=== PATIENT | female | born 1980 | race Two or more races ===

== ENCOUNTER 2019-08-31 20:38 | Emergency (ER) | payer OTHER ==
[2019-08-31 20:53] VITALS: BP 142/91; PULSE 77; TEMP 98.2; BMI 23.8
[2019-08-31] MEDS ORDERED: SODIUM CHLORIDE 0.9% 500 ML INFUS.BAG IV ONE (22:14)
[2019-08-31] MEDS ORDERED: METOCLOPRAMIDE HCL INJECTION 10 MG/2 ML VIAL IVPB ONE (22:14)
--- NOTE | 2019-08-31 22:14 | PDOC ---
History of Present Illness - General Chief Complaint: Headache Stated Complaint: HEADACHES Time Seen by Provider: 08/31/19 22:00 History Source: Patient - History of Present Illness Initial Comments: 08/31/19 22:12 39 year old female c/o sinus pain and frontal headache, dizziness , vomited 1 x since this morning. patient reports having flu like symptoms 2 weeks ago. denies fever/ chills., neck pain, chest pain, Past History - Past Medical History Allergies/Adverse Reactions: Allergies Allergy/AdvReac Type Severity Reaction Status Date / Time No Known Allergies Allergy Verified 08/31/19 20:53 Home Medications: Ambulatory Orders Cefdinir [Omnicef -] 300 mg PO BID #20 capsule 08/31/19 Ibuprofen 400 mg PO QID PRN #20 tablet 08/31/19 COPD: No - Psycho Social/Smoking Cessation Hx Smoking History: Never smoked Have you smoked in the past 12 months: No Information on smoking cessation initiated: No Hx Alcohol Use: No Drug/Substance Use Hx: No Review of Systems - Review of Systems Able to Perform ROS?: Yes Is the patient limited [place] proficient: No Constitutional: No: Symptoms Reported, See HPI, Chills, Diaphoresis, Fever, Loss of Appetite, Malaise, Night Sweats, Weakness, Weight Stable, Unintentional Wgt. Loss, Unexplained wgt Loss, Other ABD/GI: Yes: Nausea, Vomiting Musculoskeletal: No: Symptoms Reported, See HPI, Back Pain, Gout, Joint Pain, Joint Swelling, Muscle Pain, Muscle Weakness, Neck Pain, Joint Stiffness, Other Neurological: Yes: Headache, Dizziness *Physical Exam - Vital Signs Last Vital Signs Temp Pulse Resp BP Pulse Ox 98.2 F 77 17 142/91 100 08/31/19 20:51 08/31/19 20:51 08/31/19 20:51 08/31/19 20:51 08/31/19 20:51 - Physical Exam General Appearance: Yes: Appropriately Dressed HEENT: positive: Nasal Congestion, Sinus Tenderness (maxillary sinus tenderness) Respiratory/Chest: positive: Lungs Clear, Normal Breath Sounds Cardiovascular: positive: Regular Rhythm, Regular Rate ED Treatment Course - LABORATORY CBC & Chemistry Diagram: 08/31/19 22:25 08/31/19 22:25 ED Progress Note - Progress Note Progress Note: 08/31/19 23:05 A: sinusitis; headache P: labs IVF reglan benadryl Medical Decision Making - Medical Decision Making 08/31/19 23:26 no headache now. will d/c home Discharge - Discharge Information Problems reviewed: Yes Clinical Impression/Diagnosis: Headache Qualifiers: Headache type: unspecified Headache chronicity pattern: acute headache Intractability: not intractable Qualified Code(s): R51 - Headache Sinusitis Qualifiers: Sinusitis location: maxillary Chronicity: acute Recurrence: not specified as recurrent Qualified Code(s): J01.00 - Acute maxillary sinusitis, unspecified - Additional Discharge Information Prescriptions: Cefdinir [Omnicef -] 300 mg PO BID #20 capsule Ibuprofen 400 mg PO QID PRN #20 tablet PRN Reason: Pain - Follow up/Referral Referrals: ON STAFF,NOT [Primary Care Provider] - - Patient Discharge Instructions Patient Printed Discharge Instructions: DI for Sinus Headache Additional Instructions: take ibuprofen every 6 hours as needed for pain take cefidnir as prescribed. follow up with your doctor as soon as possible. - Post Discharge Activity Work/Back to School Note: Back to Work
--- NOTE | 2019-08-31 22:18 | PDOC ---
*Physical Exam - Vital Signs Last Vital Signs Temp Pulse Resp BP Pulse Ox 98.2 F 77 17 142/91 100 08/31/19 20:51 08/31/19 20:51 08/31/19 20:51 08/31/19 20:51 08/31/19 20:51 ED Treatment Course - LABORATORY CBC & Chemistry Diagram: 08/31/19 22:25 08/31/19 22:25 Medical Decision Making - Medical Decision Making 08/31/19 22:18 Patient seen by the advanced practice provider under my direct supervision. Ancillary testing reviewed as necessary. I agree with plan as outlined by the advanced practice provider. Discharge - Discharge Information Problems reviewed: Yes Clinical Impression/Diagnosis: Headache Qualifiers: Headache type: unspecified Headache chronicity pattern: acute headache Intractability: not intractable Qualified Code(s): R51 - Headache Sinusitis Qualifiers: Sinusitis location: maxillary Chronicity: acute Recurrence: not specified as recurrent Qualified Code(s): J01.00 - Acute maxillary sinusitis, unspecified - Additional Discharge Information Prescriptions: Cefdinir [Omnicef -] 300 mg PO BID #20 capsule Ibuprofen 400 mg PO QID PRN #20 tablet PRN Reason: Pain - Follow up/Referral Referrals: ON STAFF,NOT [Primary Care Provider] - - Patient Discharge Instructions Patient Printed Discharge Instructions: DI for Sinus Headache Additional Instructions: take ibuprofen every 6 hours as needed for pain take cefidnir as prescribed. follow up with your doctor as soon as possible. - Post Discharge Activity Work/Back to School Note: Back to Work
[2019-08-31] MEDS ORDERED: METOCLOPRAMIDE HCL INJECTION 10 MG/2 ML VIAL ONE (22:30)
[2019-08-31 22:47] LABS: BASO % 0.1 % (0-2.0); EOS % 0.1 % (0-4.5); HEMATOCRIT 38.8 % (32.4-45.2); HEMOGLOBIN 12.8 GM/dL (10.7-15.3); LYMPH % 11.1 % (8-40); MCH 29.7 pg (25.7-33.7); MCHC 33.1 g/dl (32.0-36.0); MEAN CELL VOLUME 89.6 fl (80-96); MONO % 2.1 % (3.8-10.2); NEUT % 86.6 % (42.8-82.8); PLATELET COUNT 254 K/MM3 (134-434); RBC 4.32 M/mm3 (3.60-5.2); RDW 13.3 % (11.6-15.6); WHITE BLOOD COUNT 12.6 K/mm3 (4.0-10.0)
[2019-08-31 23:15] LABS: ALBUMIN 4.1 g/dl (3.4-5.0); BILIRUBIN,TOTAL 0.5 mg/dL (0.2-1); BLOOD UREA NITROGEN 8.1 mg/dL (7-18); CALCIUM 9.5 mg/dL (8.5-10.1); CREATININE 0.6 mg/dL (0.55-1.3); POTASSIUM 3.8 mmol/L (3.5-5.1)
[2019-08-31] MEDS ORDERED: IBUPROFEN 400 MG TABLET (FP) PO ONE ×2 (23:29→23:35)
== END 2019-08-31 23:42 | disposition home or self-care (01) ==
LOC: JER 20:38
PROC: 3E033GC Introduction of Other Therapeutic Substance into Peripheral Vein, Percutaneous Approach (ICD-10-PCS; principal; 2019-08-31)
PROC: 3E033GC Introduction of Other Therapeutic Substance into Peripheral Vein, Percutaneous Approach (ICD-10-PCS; 2019-08-31)
DX: J01.00 Acute maxillary sinusitis, unspecified (principal); R51 Headache
CPT/HCPCS: 36415; 80053; 84703; 85025; 96374; 96375; 99283-25

== ENCOUNTER 2022-05-20 00:09 | Emergency (ER) | payer OTHER ==
[2022-05-20] MEDS ORDERED: methylPREDNISolone NA SUCC 125 MG/2 ML VIAL ONE (00:16)
[2022-05-20 01:05] VITALS: BP 151/85; PULSE 78; TEMP 97.9; BMI 24.7
== END 2022-05-20 03:32 | disposition home or self-care (01) ==
LOC: JER 00:09
DX: O03.4 Incomplete spontaneous abortion without complication (principal); O23.11 Infections of bladder in pregnancy, first trimester; N30.00 Acute cystitis without hematuria
CPT/HCPCS: 76817-TC; 99284-25

== ENCOUNTER 2022-05-20 14:23 | Emergency (ER) | payer OTHER ==
[2022-05-20 14:32] VITALS: BP 130/89; PULSE 81; TEMP 98.8; BMI 24.7
[2022-05-20 17:44] LABS: BASO % 0.4 % (0-2.0); EOS % 0.6 % (0-4.5); HEMATOCRIT 40.6 % (32.4-45.2); HEMOGLOBIN 13.6 GM/dL (10.7-15.3); LYMPH % 26.1 % (8-40); MCH 29.6 pg (25.7-33.7); MCHC 33.4 g/dl (32.0-36.0); MEAN CELL VOLUME 88.7 fl (80-96); MEAN PLT VOLUME 9.5 fl (7.5-11.1); MONO % 5.9 % (3.8-10.2); PLATELET COUNT 273 10^3/uL (134-434); RBC 4.58 M/mm3 (3.60-5.2); RDW 13.2 % (11.6-15.6); WHITE BLOOD COUNT 10.3 K/mm3 (4.0-10.0)
[2022-05-20 18:14] LABS: CALCIUM 9.3 mg/dL (8.5-10.1)
[2022-05-20 18:15] LABS: BLOOD UREA NITROGEN 7.3 mg/dL (7-18)
[2022-05-20 18:18] LABS: CREATININE 0.7 mg/dL (0.55-1.3)
== END 2022-05-20 19:18 | disposition home or self-care (01) ==
LOC: JER 14:23
DX: O03.9 Complete or unspecified spontaneous abortion without complication (principal)
CPT/HCPCS: 36415; 80048; 84702; 85025; 86850; 86900; 86901; 99283-25

== ENCOUNTER 2024-04-05 23:47 | Emergency (ER) | payer OTHER ==
[2024-04-05 23:53] VITALS: BP 142/96; PULSE 88; RESP 20; TEMP 99; BMI 24.5
[2024-04-06] MEDS ORDERED: DIPHTH,PERTUSS(ACELL),TET 0.5 ML DISP.SYRIN IM ONE (00:56)
[2024-04-06] MEDS: DIPHTH,PERTUSS(ACELL),TET 0.5 ML DISP.SYRIN IM ONE (01:08)
== END 2024-04-06 01:10 | disposition home or self-care (01) ==
LOC: JER 23:47
PROC: 3E0234Z Introduction of Serum, Toxoid and Vaccine into Muscle, Percutaneous Approach (ICD-10-PCS; principal; 2024-04-06)
DX: S61.211A Laceration without foreign body of left index finger without damage to nail, initial encounter (principal); W26.0XXA Contact with knife, initial encounter; Z23 Encounter for immunization
CPT/HCPCS: 90471; 90715; 99282-25

== ENCOUNTER 2024-04-15 18:05 | Emergency (ER) | payer OTHER ==
[2024-04-15 18:18] VITALS: BP 125/81; PULSE 74; RESP 18; TEMP 98.5; BMI 24.5
== END 2024-04-15 18:45 | disposition home or self-care (01) ==
LOC: JERFT 18:05
DX: Z48.02 Encounter for removal of sutures (principal)
CPT/HCPCS: 99281-25